=== PATIENT | male | born 1960 | race Caucasian/White ===

== ENCOUNTER 2022-12-15 21:53 | Emergency (ER) | payer MEDICAID ==
[~2022-12-15] VITALS: Ht 167.6 cm; Wt 81.6 kg
[~2022-12-15 21:53] MED LIST: ASA81 PO; CARV6.2554 PO; GLIP10TA11 PO; LOSA25TA3 PO
[2022-12-15 22:01] VITALS: BP_SYST 141; PULSE 72; RESP 20; TEMP 96.1; O2SAT 97
[2022-12-15] MEDS ORDERED: MAG-AL HYDROX/SIMETH 30 ML UDC PO ONE (22:30)
[2022-12-15] MEDS ORDERED: ONDANSETRON 4 MG ODT TAB PO ONE (22:30)
[2022-12-15] MEDS ORDERED: FAMOTIDINE 20 MG TABLET PO ONE (22:30)
[2022-12-15 23:24] LABS: BASOPHILS % (AUTO) 0.5 % (0.0-2.0); EOSINOPHILS # (AUTO) 0.1 K/uL (0.0-0.4); EOSINOPHILS % (AUTO) 0.9 % (0.0-4.0); HEMATOCRIT 41.6 % (36-54); HEMOGLOBIN 13.5 g/dL (14.0-18.0); LYMPHOCYTES # (AUTO) 1.8 K/uL (1.0-5.5); LYMPHOCYTES % (AUTO) 27.2 % (20.5-51.5); MEAN CORPUSCULAR HEMOGLOBIN 26 pg (27-31); MEAN CORPUSCULAR HGB CONC 33 % (32-36); MEAN CORPUSCULAR VOLUME 80 fL (79.0-98.0); MONOCYTES # (AUTO) 0.5 K/uL (0.0-1.0); MONOCYTES % (AUTO) 7.5 % (1.7-9.3); NEUTROPHILS # (AUTO) 4.1 K/uL (1.8-7.7); NEUTROPHILS % (AUTO) 63.9 % (40.0-70.0); PLATELET COUNT (AUTO) 222 K/uL (130-430); RED BLOOD CELL COUNT(AUTO) 5.19 MIL/uL (4.2-6.2); RED CELL DISTRIBUTION WIDTH 20.3 % (9.0-15.0); WHITE BLOOD COUNT (AUTO) 6.5 K/uL (4.8-10.8)
[2022-12-16 00:07] LABS: CALCIUM 8.8 mg/dL (8.4-11.0); CREATININE 1.25 mg/dL (0.55-1.30)
[2022-12-16 00:11] LABS: ALBUMIN 3.5 g/dL (3.4-4.8); TOTAL BILIRUBIN 0.9 mg/dL (0.0-1.0)
[2022-12-16 01:45] LABS: BILIRUBIN,URINE NEGATIVE (NEGATIVE); BLOOD, URINE NEGATIVE (NEGATIVE); CLARITY/URINE CLEAR (CLEAR); COLOR,URINE YELLOW (YELLOW); GLUCOSE,URINE 2+ (NEGATIVE); KETONES,URINE 1+ (NEGATIVE); LEUKOCYTE ESTERASE ,URINE NEGATIVE (NEGATIVE); NITRITE, URINE NEGATIVE (NEGATIVE); PROTEIN URINE 1+ (NEGATIVE); UROBILINOGEN,URINE 0.2 (0.2-1.0)
[2022-12-16 01:52] VITALS: BP_SYST 118; PULSE 86; RESP 18; TEMP 98; O2SAT 97
[2022-12-16 01:57] LABS: RBC,URINE 0-3 /HPF (0-3); WBC,URINE 0-3 /HPF (0-3)
[2022-12-16 01:58] LABS: BACTERIA,URINE None Seen /HPF (None Seen); MUCUS,URINE 1+ /LPF (None Seen)
[2022-12-16] MEDS ORDERED: ONDA-8 TL (03:06)
[2022-12-16] MEDS ORDERED: OMEP20CA15 PO (03:06)
== END 2022-12-16 03:41 | disposition home or self-care (01) ==
LOC: SED 21:53
DX: K21.9 Gastro-esophageal reflux disease without esophagitis (principal); R10.11 Right upper quadrant pain; R11.0 Nausea; E11.9 Type 2 diabetes mellitus without complications; I10 Essential (primary) hypertension; Z79.899 Other long term (current) drug therapy
CPT/HCPCS: 99284; 76705; 80053; 81000; 83690; 85025; 36415; Q0162